=== PATIENT | female | born 1940 | race Caucasian/White ===

== ENCOUNTER 2019-09-09 10:54 | Observation (INO) | payer MEDICARE ==
[~2019-09-09] VITALS: Ht 170.2 cm; Wt 107.8 kg
[2019-09-09] MEDS ORDERED: MULT-658 PO (12:21)
[2019-09-09] MEDS ORDERED: CALCIUM (12:21)
[2019-09-09] MEDS ORDERED: LORA-864 PO (12:21)
[2019-09-09] MEDS ORDERED: TRAM100T33 PO (12:21)
[2019-09-09] MEDS ORDERED: MONT10TA6 PO (12:21)
[2019-09-09] MEDS ORDERED: VITAMIN D (12:21)
[2019-09-09 12:25] LABS: BASOPHILS # (AUTO) 0.07 x10^3/uL (0-0.1); BASOPHILS % (AUTO) 1 % (0-1); EOSINOPHILS # (AUTO) 0.12 x10^3/uL (0-0.4); EOSINOPHILS % (AUTO) 2 % (1-7); LYMPHOCYTES # (AUTO) 1.16 x10^3/uL (1-3.4); LYMPHOCYTES % (AUTO) 20 % (22-44); MD NO; MEAN CORPUSCULAR HGB CONC 33.4 g/dL (32.4-35.8); MEAN CORPUSCULAR VOLUME 95.7 fL (80-100); MEAN PLATELET VOLUME 7.6 fL (7.4-10.4); MONOCYTES # (AUTO) 0.71 x10^3/uL (0.2-0.8); MONOCYTES % (AUTO) 12 % (2-9); NEUTROPHILS # (AUTO) 3.85 x10^3/uL (1.8-6.8); NEUTROPHILS % (AUTO) 65 % (42-75); PLATELET COUNT 366 x10^3/uL (130-400); RED CELL DISTRIBUTION WIDTH 12.9 % (9.6-15.2)
[2019-09-09 12:43] LABS: ALBUMIN 3.3 g/dL (3.4-5.0); ANION GAP 7 mmol/L (5-15); CALCIUM 9.1 mg/dL (8.5-10.1); CHLORIDE 104 mmol/L (98-107)
[2019-09-09 12:48] LABS: CREATININE 0.83 mg/dL (0.55-1.02); TROPONIN I < 0.015 ng/mL (0.000-0.045)
--- NOTE | 2019-09-09 13:00 | NUR ---
BREAK RN NOTE": STRAIGHT CATH DONE AT BED SIDE WITH LEE WRIGHT HELP PT TOLERATED WELL
[2019-09-09 13:09] LABS: MICROSCOPIC NOT IND
[2019-09-09 13:18] LABS: CULTURE INDICATED? NO
--- NOTE | 2019-09-09 15:12 | NUR ---
pt ambulated in hallway with spo2 monitoring. low 87% high of 90%. dr bob aware. awaiting further orders
[2019-09-09] MEDS ORDERED: OMNIPAQUE 350 MG/ML, 100ML BOTTLE ONE (16:15)
[2019-09-09] MEDS ORDERED: SODIUM CHLORIDE FLUSH 10ML SYR IVF PRN (18:00)
[2019-09-09] MEDS ORDERED: GUAIFENESIN/DM 200-20MG, 10ML UDC PO PRN (18:30)
[2019-09-09] MEDS ORDERED: DIPHENHYDRAMINE 25 MG CAPSULE PO PRN (18:30)
[2019-09-09] MEDS ORDERED: IBUPROFEN 600 MG TABLET PO PRN (18:30)
[2019-09-09] MEDS ORDERED: ONDANSETRON ODT 4 MG PO PRN (18:30)
[2019-09-09] MEDS ORDERED: LABETALOL 5 MG/ML SYR. (IV ONLY) IVPush PRN (18:30)
[2019-09-09] MEDS ORDERED: POLYETHYLENE GLYCOL 17 GM PACKET PO PRN (18:30)
[2019-09-09] MEDS ORDERED: BISACODYL 10 MG SUPP PR PRN (18:30)
[2019-09-09] MEDS ORDERED: KETOROLAC 30 MG/1 ML IV PRN (18:30)
[2019-09-09 19:31] VITALS: BP 134/83
[2019-09-09] MEDS: ENOXAPARIN 40 MG/0.4 ML SQ SCH (20:14)
[2019-09-10 02:34] VITALS: BP 109/67
[2019-09-10 06:38] VITALS: BP 115/72
[2019-09-10 06:43] LABS: BASOPHILS # (AUTO) 0.03 x10^3/uL (0-0.1); BASOPHILS % (AUTO) 1 % (0-1); EOSINOPHILS # (AUTO) 0.16 x10^3/uL (0-0.4); EOSINOPHILS % (AUTO) 3 % (1-7); LYMPHOCYTES # (AUTO) 1.43 x10^3/uL (1-3.4); LYMPHOCYTES % (AUTO) 25 % (22-44); MD NO; MEAN CORPUSCULAR HEMOGLOBIN 31.5 pg (27.0-34.8); MEAN CORPUSCULAR HGB CONC 32.5 g/dL (32.4-35.8); MEAN CORPUSCULAR VOLUME 96.9 fL (80-100); MEAN PLATELET VOLUME 7.8 fL (7.4-10.4); MONOCYTES # (AUTO) 0.58 x10^3/uL (0.2-0.8); MONOCYTES % (AUTO) 10 % (2-9); NEUTROPHILS # (AUTO) 3.63 x10^3/uL (1.8-6.8); NEUTROPHILS % (AUTO) 62 % (42-75); PLATELET COUNT 352 x10^3/uL (130-400); RED BLOOD COUNT 4.28 x10^6/uL (3.82-5.3); RED CELL DISTRIBUTION WIDTH 12.9 % (9.6-15.2)
[2019-09-10 06:46] LABS: ANION GAP 6 mmol/L (5-15); CALCIUM 8.5 mg/dL (8.5-10.1); CHLORIDE 109 mmol/L (98-107)
[2019-09-10 06:50] LABS: CHOL/HDL RATIO 3.3; CHOLESTEROL, TOTAL 179 mg/dL (140-239); CREATININE 0.59 mg/dL (0.55-1.02); HDL CHOL % 31 % (28-40); HDL CHOLESTEROL (DIRECT) 55 mg/dL (40-60); LDL CHOLESTEROL,CALCULATED 108 mg/dL (54-169); TRIGLYCERIDES 81 mg/dL (50-200); VLDL CHOLESTEROL 16 mg/dL (0-25)
[2019-09-10] MEDS: MONTELUKAST 10 MG TABLET PO SCH (09:21)
[2019-09-10] MEDS: MULTIVITAMIN 1 TABLET PO SCH (09:22)
[2019-09-10] MEDS: LORATADINE/PSE 5/120MG TAB.ER.12H PO SCH ×2 (10:10→21:00)
[2019-09-10 12:39] LABS: RAPID INFLUENZA A Negative (Negative); RAPID INFLUENZA B Negative (Negative)
[2019-09-10 14:07] VITALS: BP 117/67
[2019-09-10] MEDS: ENOXAPARIN 40 MG/0.4 ML SQ SCH (17:40)
[2019-09-10 20:03] VITALS: BP 115/64
[2019-09-10] MEDS: ACETAMINOPHEN 325 MG TABLET PO PRN (20:15)
[2019-09-11 03:16] VITALS: BP 118/60
[2019-09-11] MEDS: ACETAMINOPHEN 325 MG TABLET PO PRN (06:30)
[2019-09-11 08:35] VITALS: BP 113/74
[2019-09-11] MEDS: MULTIVITAMIN 1 TABLET PO SCH (08:45)
[2019-09-11] MEDS: MONTELUKAST 10 MG TABLET PO SCH (08:45)
[2019-09-11] MEDS: LORATADINE/PSE 5/120MG TAB.ER.12H PO SCH (08:48)
== END 2019-09-11 12:23 | disposition home or self-care (01) ==
LOC: ED 12:44 → INTOOBSV 17:43 → EDIP 17:43 → 3N 18:50 → DCLOUNGE 09-11 12:15
PROVIDERS: ADMIT Family Medicine; ATTEND Family Medicine
DX: R09.02 Hypoxemia (principal); J30.2 Other seasonal allergic rhinitis; E66.9 Obesity, unspecified; M19.90 Unspecified osteoarthritis, unspecified site; Z79.899 Other long term (current) drug therapy
CPT/HCPCS: 36415; 70450; 71045; 71275; 80048; 80061; 81003; 82040; 83880; 84443; 84484; 85025; 85379; 87400; 87633; 93005; 93306; 96372; 99284; G0378; J1650; Q9967; 99285